=== PATIENT | female | born 1995 | race Caucasian/White ===

== ENCOUNTER 2016-09-01 17:30 | Emergency (ER) | payer OTHER ==
[2016-09-01 17:37] VITALS: BP 113/68
[2016-09-01] MEDS ORDERED: DOXYCYCLINE 100 MG TABLET PO STA (17:48)
--- NOTE | 2016-09-01 17:51 | ED Physician Documentation ---
History of Present Illness - Stated complaint Stated Complaint: L LEG PX - Chief complaint Chief Complaint: Ext Problem - History obtained from History obtained from: Patient, Friend - History of Present Illness Timing: Today Pain level max: 0 Pain level now: 0 - Additonal information Additional information: Patient is a 20-year-old female who presents to the emergency department after having a tick bite to the left inner thigh today. Unclear where the tick came from. She is visiting from [facility]. Her friend and her have been on a road trip through the [facility], through [facility] and now to [place]. The tick was removed prior to arrival. She is feeling normal at this time. Review of Systems Constitutional: denies: Fever GI: denies: Vomiting : denies: Now EGA Skin: denies: Rash Neurologic: denies: Seizure, Confused, Headache PD PAST MEDICAL HISTORY - Past Medical History Past Medical History: No Other Past Medical History: c-dif - Past Surgical History Past Surgical History: No - Present Medications Home Medications: Ambulatory Orders Medication Instructions Recorded Confirmed No Known Home Medications [No 09/01/16 09/01/16 Known Home Medications] - Allergies Allergies/Adverse Reactions: Allergies Allergy/AdvReac Type Severity Reaction Status Date / Time Penicillins Allergy Unknown Verified 09/01/16 17:37 - Social History Does the pt smoke?: No Smoking Status: Never smoker Does the pt drink ETOH?: No Does the pt have substance abuse?: No - Immunizations Immunizations are current?: No Immunizations: TDAP >10years/unknown PD ED PE NORMAL - Vitals Vital signs reviewed: Yes - General General: Alert and oriented X 3, No acute distress, Well developed/nourished - Derm Derm: Warm and dry, No rash - Extremities Extremities: Other (Visible tick bite to the left inner thigh, distal aspect. No visible tick. No rash) - Neuro Neuro: Alert and oriented X 3 - Psych Psych: Normal mood, Normal affect Results - Vitals Vitals: Vital Signs - 24 hr 09/01/16 17:35 Temperature 36.6 C Heart Rate 75 Respiratory 16 Rate Blood Pressure 113/68 O2 Saturation 98 PD MEDICAL DECISION MAKING - ED course Complexity details: considered differential, d/w patient ED course: Patient with a tick bite to the left medial thigh. Unclear where the tick came from, and given her recent travels, there is a possibility of Lyme disease being transmitted. The tick is not available for inspection. Given a dose of 200mg doxycycline for prophylaxis here. Patient counseled regarding signs and symptoms for which I believe and urgent re-evaluation would be necessary. Patient with good understanding of and agreement to plan and is comfortable going home at this time This document was made in part using voice recognition software. While efforts are made to proofread this document, sound alike and grammatical errors may occur. Departure - Departure Disposition: 01 Home, Self Care Clinical Impression: Tick bite Qualifiers: Encounter type: initial encounter Qualified Code(s): W57.XXXA - Bitten or stung by nonvenomous insect and other nonvenomous arthropods, initial encounter Condition: Good Instructions: ED Bite Tick No Abx Tx Follow-Up: your,doctor as needed [Other] Comments: Return if you worsen. Have fun on your road trip! Discharge Date/Time: 09/01/16 18:10
[2016-09-01] MEDS ORDERED: DOXYCYCLINE 100 MG TABLET PO ONE (17:57)
== END 2016-09-01 18:10 | disposition home or self-care (01) ==
LOC: ED 17:30
DX: S70.362A Insect bite (nonvenomous), left thigh, initial encounter (principal); W57.XXXA Bitten or stung by nonvenomous insect and other nonvenomous arthropods, initial encounter
CPT/HCPCS: 99283; A9270